=== PATIENT | female | born 1990 | race African-American/Black ===

== ENCOUNTER 2016-11-18 14:42 | Emergency (ER) | payer OTHER ==
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
== END 2016-11-18 16:21 | disposition home or self-care (01) ==
LOC: CED 14:42
DX: F07.81 Postconcussional syndrome (principal); S01.112A Laceration without foreign body of left eyelid and periocular area, initial encounter; F17.210 Nicotine dependence, cigarettes, uncomplicated; X99.8XXA Assault by other sharp object, initial encounter; Y92.009 Unspecified place in unspecified non-institutional (private) residence as the place of occurrence of the external cause
CPT/HCPCS: 12011; 70450; 99284